=== PATIENT | female | born 1930 | race Caucasian/White ===

== ENCOUNTER → 2016-10-25 | Day surgery (SDC) | payer MEDICARE, MEDICAID ==
[~2016-10-25] VITALS: Ht 162.6 cm; Wt 65.8 kg
[~2016-10-25] MED LIST: ACET325T51 PO; AMLO10TA5 PO; ASPI-973 PO; CALC-3 PO; CALC500T9 PO; CHOL200047 PO; CYAN1TAB42 PO; DOCU-41 PO; FOLI1TAB18 PO; GABA-500 PO; HYDR-3090 PO; HYDR-4003 PO; LORA10CA PO; LOSA25TA21 PO; Lactated Ringer's 1,000 ML IV ONE; METO1TAB25 PO; METO25TA6 PO; ONDA4TAB9 PO; OXYB10TA PO; POLY17PO6 PO; PSYL660P17 PO; Propofol 10 mg/mL 20 mL Inj ONE; ROTI1PAT8 TD; SELE5CAP7 PO; SIME125C76 PO; THYR15TA PO; [UNRECOGNIZED DRUG - CODE] PO
--- NOTE | 2016-10-25 07:15 | PCM.HPANE ---
Patient Data Surgeon Admitting Provider: Attending Provider:Fredy Samuel MD Primary Care Physician:Carmela Linares MD Other Provider:Romulo Weber Anesthesia Reason for Visit Globus Sensation Ht/WT & BMI Body Mass Index Allergies Coded Allergies: Penicillins (Verified Allergy, Unknown, 04/21/15) erythromycin base (Verified Allergy, Unknown, 04/21/15) Past Anesthesia History Anesthesia History: Positive for:: Anesthesia Reactions (RECOVER SLOWLY ), Denies:: Abnormal Airway, Difficult Intubation, Fam Anesthesia Reaction, Fam Malignant Hypertherm, Malignant Hyperthermia Diabetes History Hx Diabetes?: No MRSA MRSA: No Medications Reported Medications Metoprolol Tartrate 25 Mg Wigowe02 Mg PO BID 30 Days Ref 0 10/25/16 Gabapentin 100 Mg Lskfagk707 Mg PO TID 30 Days Ref 0 10/25/16 Aspirin 81 Mg Cuwnvc97 Mg PO DAILY Ref 0 10/25/16 Rotigotine (Neupro)1 Each Patch.td241 Each TD DAILY 10/25/16 Calcium Carbonate (Tums)500 Mg Tab.kfjl232 Mg PO PRN PRN For Indigestion 30 Days 04/21/15 Carbidopa/Levodopa ER 50-200 mg (Sinemet CR 50-200 mg)1 Each Tablet1 Tablet PO DAILY 04/21/15 Selegiline 5 Mg Capsule5 Mg PO BID Ref 0 04/21/15 Hydrocodone-Acetaminophen 5-325 mg 1 Each Tablet1 Tablet PO Q4H PRN For Pain Ref 0 04/21/15 Rotigotine (Neupro)1 Each Patch.td241 Each TD 04/21/15 Thyroid,Pork (Dawson Thyroid)15 Mg Dsmlkq52 Mg PO DAILY 04/21/15 Acetaminophen 325 Mg Agogsb303 Mg PO Q4H PRN For Fever Ref 0 04/21/15 Discontinued Reported Medications Ondansetron ODT (Zofran ODT)4 Mg Tablet4 Mg PO Q4H PRN For Nausea 04/21/15 Cholecalciferol (Vitamin D3) (Vitamin D3)2,000 Unit Capsule2,000 Unit PO DAILY 04/21/15 Cyanocobalamin/Folic Acid (Vitamin Y46-Bieod Acid Tablet)1 Each Tablet1 Each PO 04/21/15 Hydrocodone-Acetaminophen 5-300 mg 1 Each Tablet1 Tablet PO Q4H PRN For Pain Ref 0 04/21/15 Oxybutynin Chloride ER 10 Mg Tab.er.2410 Mg PO DAILY Ref 0 04/21/15 Amlodipine (Norvasc)10 Mg Eiiioo96 Mg PO DAILY Ref 0 04/21/15 Simethicone (Phazyme)125 Mg Ilbrcoa176 Mg PO 04/21/15 Polyethylene Glycol 3350 (Miralax)17 Gm Powd.pack17 Gm PO 04/21/15 Psyllium Husk (Metamucil)3.4 Gram/5.4 Gram Izqyfa369 Gm PO 04/21/15 Losartan Potassium 25 Mg Uoedye48 Mg PO DAILY 04/21/15 Metoprolol/Hydrochlorothiazide (Lopressor Hct 50-25 Tablet)1 Each Yubkpk004 Each PO DAILY 30 Days Ref 0 04/21/15 Folic Acid 1 Mg Tablet1 Mg PO DAILY 30 Days 04/21/15 Docusate Sodium (Colace)100 Mg Ffmvhus104 Mg PO HS PRN For Constipation Ref 0 04/21/15 Loratadine (Claritin)10 Mg Qehghxf83 Mg PO DAILY Ref 0 04/21/15 Calcium Carbonate/Vitamin D3 (Calcium 500+D Tablet Chew)1 Each Tab.chew1 Each PO DAILY 04/21/15 History History of ENT Problems?: No HEENT History: Positive for:: Dysphagia Denies:: Abnormal Airway Difficult Intubation Hearing Problem Denture Type: Partial- Upper Partial- Lower Teeth Condition: Within Normal Limits Hx of Heart Problems?: Yes Cardiovascular History: Positive for:: Hypertension Pacemaker Valvular Heart Disease Denies:: AICD Atrial Fibrillation Chest Pain Hx of Respiratory Problem?: No Respiratory History: Denies:: Asthma COPD Cough Hemoptysis Pneumonia Tuberculosis Hx Neurologic Problems?: No Neurological History: Positive for:: Parkinson's Disease Denies:: CVA Hx of GI Problems?: Yes Hx of Problems?: No Hx Musculoskeletal Problems?: No Musculoskeletal History: Denies:: Joint Replacement Psycho Social History: Positive for:: Anxiety Hx Depression Hx Surgeries?: Yes (HYSTERECTOMY, GALL BLADDER, THROAT ) Hx Any Other Health Problems?: Yes Hx Diabetes: No Hx Alcohol Use: No Smoking Status: Never Smoker Stop/Bang Risk Assessment Category Category 1A: Patient has history of documented sleep apnea, and HAS NOT received any narcotic, sedative or anesthesia administration during this stay. Category 1B: Patient has history of documented sleep apnea, and HAS received any narcotic , sedative or anesthesia administration during this stay Category 2: Patient has SUSPECTED Obstructive Sleep Apnea, and HAS received any narcotic , sedative or anesthesia administration during this stay. Category 3: Patient has SUSPECTED Obstructive Sleep Apnea and HAS NOT received narcotic, sedative or anesthesia administration during this stay. Category 4: Outpatient in Procedural Areas with known sleep apnea or who screen positive for High Risk via the STOP/BANG questionnaire. Exam Exam General Appearance: Alert, Oriented X3, Cooperative HEENT/AIRWAY: MP 2 Lungs: Normal Air Movement Heart: Regular Rate/Rhythm Plan Impression Patient chart reviewed, patient interviewed and anesthestic plan with risks, benefits, and alternatives discussed, and informed consent obtained. ASA Physical Status: ASA3 Severe Disease Anesthetic Plan: MAC Bene/Risks/Altern/Consents: Yes HP Complete Prior to Induction: Yes Edward Ramírez MD Oct 25, 2016 07:15
[2016-10-25 13:25] VITALS: BP 175/95; PULSE 65; O2SAT 95
[2016-10-25 15:07] VITALS: BP 181/80; PULSE 62; RESP 14; O2SAT 97
[2016-10-25 15:20] VITALS: BP 180/78; PULSE 62; RESP 12; O2SAT 96
--- NOTE | 2016-10-25 15:39 | ENDO ---
[address] [address] ENDOSCOPY PROCEDURE PATIENT: RAVI HALLMAN : 1930 MR#: [id number] ADMIT: 10/25/2016 JOB ID: [id number] DATE OF SERVICE: 10/25/2016 PRIMARY PROVIDER: Carmela Linares MD PROCEDURE: Esophagogastroduodenoscopy with biopsy. INDICATIONS: An 86-year-old female with symptoms of globus. She has historically been intolerant of PPI. She is using Manuka honey but not with a tremendous amount of success. EGD is pursued for further evaluation. EQUIPMENT: GIFH-180J SEDATION: Monitored anesthesia as provided by Dr. Edward Ramírez. COMPLICATIONS: None identified. PROCEDURE INFORMATION: After the risks and benefits were explained, written and verbal informed consent was obtained. The patient was brought into the endoscopy suite and placed into the left lateral decubitus position. Sedation was achieved using the above-stated medications with the addition of oxygen via nasal cannula. The scope was introduced into the mouth through the bite block, and advanced under direct visualization to the level of the second portion of the duodenum. The scope was slowly withdrawn to carefully examine the mucosa for any defects or lesions. Retroflexed views were accomplished in the stomach. The stomach was decompressed. The scope removed from the patient who tolerated the procedure well. FINDINGS: 1. Duodenum: No significant pathology appreciated from the bulb through to the second portion. 2. Stomach: The patient had a subtle erosion versus superficial ulcer in the prepyloric region. Other otherwise mild gastropathy. Random biopsy was taken for exclusion of Helicobacter or any other underlying histopathology. Otherwise, retroflexed views of the LES disclosed a sliding hiatal hernia. No other significant mucosal pathology appreciated throughout. 3. Esophagus: The squamocolumnar junction generally correlated with the top of the gastric folds. The GEJ was at about 34 cm from the incisors. The patient had obvious LA grade A erosive esophagitis. No other significant mucosal pathology appreciated in the esophagus. ENDOSCOPIC DIAGNOSES: 1. [place]ura grade A erosive esophagitis. 2. Sliding hiatal hernia. 3. Erosive gastropathy. RECOMMENDATIONS: 1. Await histopathology. 2. If Helicobacter is found, it will need to be eradicated with standard triple therapy. However the patient does have an allergy to erythromycin and penicillins. 3. Continue Ajith for breakthrough. I would be interested to see if she does okay with another trial of an H2 receptor antagonist such as Pepcid, at least once daily. Will try this and bring her back the office for followup.
--- NOTE | 2016-10-25 17:40 | PCM.ANEP1 ---
Post Anesthesia PACU Phase 1 Assessment Vital Signs Vital Signs Date Time Temp Pulse Resp B/P Pulse Ox O2 Delivery O2 Flow Rate FiO2 10/25/16 15:20 62 12 180/78 96 Room Air 10/25/16 15:07 62 14 181/80 97 Room Air 10/25/16 13:25 65 175/95 95 Room Air Anesthetic Administered: MAC Level of Alertness: Awake, talking Pain: No Nausea or Vomiting: No CV Function & Hydration Stable: Yes Airway Device: None Lungs: Normal Air Movement PACU Phase 2 Assessment Complications: No Follow up Care: N/A Patient Instructions Provided: N/A Edward Ramírez MD Oct 25, 2016 17:40
--- NOTE | 2016-10-28 12:55 | PATH ---
SURGICAL PATHOLOGY Attending Physician:Nan Guzman CASE STATUS: Signed Out PATIENT NAME: RAVI HALLMAN PID: [id number] : 1930 DATE COLLECTED:10/25/2016 00:00 SPECIMEN: Gastric, Biopsy CLINICAL HISTORY: 1). GASTRIC BIOPSY RULE OUT H PYLORI FINAL DIAGNOSIS: Stomach, Biopsy: Normal antral mucosa. Negative for inflammation and Helicobacter organisms. Negative for intestinal metaplasia, dysplasia and malignancy. ICD10: R10.13 GROSS DESCRIPTION: The specimen is received in one formalin filled container labeled with the patient's name, sublabeled "gastric" and consists of a 0.3 x 0.2 x 0.2 CM portion of tissue which is entirely submitted in one cassette. 10/26/2016DC ICD-9 CODES: CPT CODES: 1: 07432 Electronically Signed Out Ervin Valentino MD, PhD [facility], [place] [address] Technical component performed at [facility], [address] [place] [address] Ave[address], [address]
== END | disposition home or self-care (01) ==
LOC: END 01:38
PROVIDERS: ATTEND Internal Medicine Gastroenterology
DX: K22.10 Ulcer of esophagus without bleeding (principal); K44.9 Diaphragmatic hernia without obstruction or gangrene; K31.9 Disease of stomach and duodenum, unspecified; F45.8 Other somatoform disorders; G20 Parkinson's disease
CPT/HCPCS: 43239; J2704; J7120